=== PATIENT | male | born 1980 | race Caucasian/White ===

== ENCOUNTER → 2017-07-10 | Day surgery (SDC) | payer OTHER ==
[~2017-07-10] VITALS: Ht 177.8 cm; Wt 154.2 kg
[~2017-07-10] MED LIST: ASPIRIN81 M1 PO; CATAFLAM50 MG PO; GAVISCON LIQUI355 ML PO; HYDROCODONE BIT1 T11 PO; LISINOPRIL20 MG PO; MELOXICAM15 MG PO; METFORMIN HCL500 MG PO; METOPROLOL SR50 MG PO; OMEPRAZOLE D/R20 MG PO; PREPARATION H1 EAC1 R; Synthroid,Levo75 MCG PO; TOPROL XL50 M1 PO
--- NOTE | ~2017-07-10 | O ---
[place], [place] OPERATIVE NOTE NAME: ERICA MCDANIELS UNIT #: [id number] ROOM: DOCTOR[facility] BIRTH[facility] [birth year] DOS: 07/10/2017 HISTORY OF PRESENT ILLNESS: This is a 37-year-old patient who presented with chief complaint of rectal bleed, dyspepsia, undergoing investigation. PAST MEDICAL HISTORY: Associated hypertension, obesity, hypothyroidism, and diabetes mellitus. PAST SURGICAL HISTORY: Right knee bilateral shoulder repair. FAMILY HISTORY: Noncontributory. ALLERGIES: No known medication. SOCIAL HISTORY: Smoker, 1 pack a day. Social drinker. PROCEDURE: Today's procedure part of investigation is panendoscopy and colonoscopy. PREMEDICATION: Versed and Diprivan. SCOPE: Olympus folding colonoscope 10L video. REPORT: After putting the patient in left lateral position and application of lubricant to the scope, the scope was introduced. Thereafter, under direct visualization, advanced through the length of esophagus without difficulty. There was 1.5 cm small hiatal hernia was appreciated. Gastric pouch was entered. Gastritis seen. Duodenal bulb, second and third part within normal limits. The patient extubated after antral biopsy, tolerated the procedure well. IMPRESSION: Small hiatal hernia, mild gastritis, status post biopsy. The gastritis could be secondary to Meloxicam, nonsteroidal anti-inflammatory. On the other hand, the patient on omeprazole 20 mg daily. We will continue with the same management. Furthermore, we are going to proceed with colonoscopy for lower GI bleed. COLONOSCOPY AND SNARE POLYPECTOMY The patient has presented with a lower GI bleed, undergoing investigation. PROCEDURE: Today's procedure part of investigation colonoscopy and snare polypectomy of the sigmoid colon polyp. PREMEDICATION: Versed and Diprivan. SCOPE: Olympus folding colonoscope 10L video. REPORT: After putting the patient in the left lateral position and application of lubricant to the scope, the scope was introduced; thereafter under direct [place], [place] OPERATIVE NOTE NAME: ERICA MCDANIELS UNIT #: [id number] ROOM: DOCTOR[facility] BIR[facility] [birth year] visualization, advanced through the length of colon without difficulty. Base of the cecum explored. ____ identified ileocecal valve was defined. Sessile polypoid lesion with a snare polypectomized from sigmoid colon. The patient extubated and tolerated the procedure well. IMPRESSION: Sessile colonic polyps, sigmoid colon, status post snare polypectomy, small hemorrhoids. PLAN AND DISCUSSION: Preparation-H suppositories 1 at bedtime for the next 3 days and thereafter p.r.n. as needed, meloxicam to be taken only on full stomach elevation of the head of the bed 6 inch if possible and follow up routinely with you in office p.r.n. visit with us in [facility]. I thank you very much indeed for your kind referral. TRINI BRISCOE MD CM:OPRECORD:OPERATIVE NOTE [id number] TRINI BRISCOE MD 07/10/17 1336 interface
[2017-07-10 06:54] VITALS: BP 116/69
[2017-07-10 08:08] VITALS: BP 127/70
[2017-07-10 08:24] VITALS: BP 126/81
[2017-07-10 08:38] VITALS: BP 134/80
== END ==
LOC: SDC 07-05 14:45
DX: K63.5 Polyp of colon (principal); K29.50 Unspecified chronic gastritis without bleeding; I10 Essential (primary) hypertension; E03.9 Hypothyroidism, unspecified; E11.9 Type 2 diabetes mellitus without complications; Z98.890 Other specified postprocedural states; F17.210 Nicotine dependence, cigarettes, uncomplicated; K44.9 Diaphragmatic hernia without obstruction or gangrene; K64.8 Other hemorrhoids; F32.9 Major depressive disorder, single episode, unspecified; K21.9 Gastro-esophageal reflux disease without esophagitis; Z82.49 Family history of ischemic heart disease and other diseases of the circulatory system